=== PATIENT | female | born 1995 | race Hispanic/Latino ===

== ENCOUNTER 2024-03-28 19:54 | Emergency (ER) | payer OTHER, SELFPAY ==
[2024-03-28 19:56] VITALS: BP 123/76
--- NOTE | 2024-03-28 20:56 | ED.SKININJ ---
HPI-Injury
General
Chief Complaint: Musculo-Skeletal Complaint
Source: patient and other (Language Line Manager Nuclear [id number])
Exam Limitations: none
Time Seen by Provider: 03/28/24 20:20
Nursing documentation reviewed up to this point in time: agreed with
History of Present Illness-Injury
Initial Injury comments:
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 Dog is domestic. Pt unsure of her last dT/
Past History
Past History
ED Past Medical History: None
ED Past Surgical History: None
Social History
Tobacco: Non-smoker
Alcohol: None
Personal:
Living: with family
Employment: Employed
Review of Systems
Review of Systems
Allergies reviewed?: Yes
All Other Systems: ROS reviewed and negative except as documented in HPI and ROS
Constitutional: Denies fever
Skin: Reports other (dog bite outer right knee)
Phy Exam
Physical Exam
Physical Exam:
PHYSICAL EXAMINATION:
General: no apparent distress, not acutely ill
Neuro: alert and oriented.
Psychiatric: well kept. interactive and cooperative
Musculoskeletal: Moves with ease. Full range of motion of the right knee with no bony tenderness.
Skin: Warm, pink. The lateral aspect of the right knee has mild local swelling, multiple deep clean abrasions, no punctures, no lacerations, distal neurovascular intact.
Course
Orders/Labs/Results
Orders:
Orders
03/28/24 20:55
Tetanus/Diphth/Acelpertussis [Adacel] 0.5 ml IM .ONCE ONE
Vital Signs
Initial and Last Documented VS:
Initial Vital Signs
Temp Pulse Resp BP Pulse Ox
98.4 F 92 17 123/76 100
03/28/24 19:56 03/28/24 19:56 03/28/24 19:56 03/28/24 19:56 03/28/24 19:56
Last Documented Vital Signs
Temp Pulse Resp BP Pulse Ox
98.4 F 92 17 123/76 100
03/28/24 19:56 03/28/24 19:56 03/28/24 19:56 03/28/24 19:56 03/28/24 19:56
MDM/Problems Addressed
MDM/Problems Addressed:
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 Dog is domestic. Pt unsure of her last dT/
Dog obviously domesticated, no risk for rabies
Pt Tdap updated.
Relatively superficial wound. No systemic antibiotic indicated
Patient ambulating well with normal gait
*Critical Care Note
Total Time (30-74mins, 75-104mins- exclusive of procedures): Not Applicable
ED Attending Note
-
Portions of this chart may have been created with voice recognition software.� Occasional wrong word or��sound alike� substitutions may have occurred due to the inherent limitations of voice recognition software.
Discharge Plan
Departure
Patient Disposition: Home (Routine Discharge)
Date of Disposition: 03/28/24
Time of Disposition: 21:04
Patient with high blood pressure during this ER visit?: No
Condition: Good
Discharge Problem:
Dog bite of right lower leg
Instructions: Using Cold for Pain, Animal Bites ED
Referrals:
Your, Worker's Comp provider [Other] - Keep scheduled appt
Activity Restrictions/Additional Instructions:
As we discussed, wash the area daily and as needed, keep it clean dry and covered until healed.
Seek medical care immediately for signs of infection which may include increasing swelling, redness, pain, pus drainage, fever
Follow-up with your Worker's Comp. provider as they direct you
Cold compress to area 15 minutes off and on several times a day today and tomorrow to help minimize swelling
Interventions
Interventions:
*Risk Screen - Suicide Last Done: 03/28/24 19:56
*General Assessment Last Done: 03/28/24 19:56
*Neglect/Abuse Screening Last Done: 03/28/24 19:56
*ED COVID-19 Vaccine History Last Done: 03/28/24 20:18
*Nursing Disposition Last Done: 03/28/24 21:36
ED-Musculoskeletal Assessment Last Done: 03/28/24 20:18
Discharge Date and Time
Discharge Date/Time: 03/28/24 21:36
Print Language: IRANIAN
[2024-03-28] MEDS: ADACEL 0.5 ML IM (21:24)
== END 2024-03-28 21:36 | disposition home or self-care (01) ==
LOC: EMR 19:54
PROVIDERS: EMERGENCY PHYSICIAN Emergency Medicine
DX: S81.851A Open bite, right lower leg, initial encounter (principal); W54.0XXA Bitten by dog, initial encounter; Z23 Encounter for immunization
CPT/HCPCS: 99282; 90471; 90715

== ENCOUNTER 2024-05-12 21:53 | Emergency (ER) | payer OTHER, SELFPAY ==
[2024-05-12 21:55] VITALS: BP 103/82
[2024-05-12 22:33] LABS: COVID-19 Antigen Negative (Negative)
--- NOTE | 2024-05-13 00:57 | ED.GENMED ---
History of Present Illness
General
Chief Complaint: Cough
Time Seen by Provider: 05/13/24 00:17
History of Present Illness
History of Present Illness:
29-year-old female without significant past medical history presenting for 4 days of cough, congestion, sore throat, body aches. Denies any sick contacts. Notes chills. Denies any chest pain. Does note some mild dyspnea. Denies abdominal pain
or vomiting, has had some nausea. Denies additional acute medical complaints
Patient Turkish-speaking with interpretation by model set artist device.
Past History
Past History
ED Past Medical History: None
ED Past Surgical History: None
Social History
Tobacco: Non-smoker
Alcohol: None
Personal:
Living: with family
Employment: Employed
Phy Exam
Physical Exam
Physical Exam:
General: Well-appearing, no clinical signs of dehydration, nontoxic and in no acute distress
HEENT: protecting airway, normal oropharynx
Neck: appears supple
CV: Normal heart rate, regular rhythm
Resp: No accessory muscle use, no increased work of breathing, lungs clear to auscultation bilaterally
Abd: Soft and non-distended, no tenderness to palpation
Extremities: No deformities, no swelling, no erythema
Neuro: alert, no focal neurologic deficit
: deferred
Rectal: deferred
Psych: Normal affect
Skin: Intact
Course
Orders/Labs/Results
Orders:
Orders
05/12/24 21:57
CR Chest - 2 Views Urgent
Comment:
Reason For Exam: cough
05/12/24 21:59
COVID-19 Antigen Urgent
Source: Nasal Swab
Influenza A+B Rapid Molecular Urgent
BRITTANY Source: Nasal Swab
Specimen Description:
05/12/24 23:05
Influenza A+B Rapid Molecular Urgent
BRITTANY Source: Nasal Swab
Specimen Description:
Date Specimen was Collected: 05/12/24
Time Specimen was Collected: 22:56
Vital Signs
Initial and Last Documented VS:
Initial Vital Signs
Temp Pulse Resp BP Pulse Ox
98.1 F 98 18 103/82 99
05/12/24 21:55 05/12/24 21:55 05/12/24 21:55 05/12/24 21:55 05/12/24 21:55
Last Documented Vital Signs
Temp Pulse Resp BP Pulse Ox
98.1 F 98 18 103/82 99
05/12/24 21:55 05/12/24 21:55 05/12/24 21:55 05/12/24 21:55 05/12/24 21:55
MDM/Problems Addressed
MDM/Problems Addressed:
29-year-old female presenting for cough, congestion, chills. Vital signs normal.
Patient is well-appearing on exam, no acute respiratory distress, unremarkable cardiac and pulmonary exam. Symptoms appear consistent with viral syndrome. Patient had screening laboratory analysis and viral swabs prior to my assessment, positive
for influenza A. Patient out of window for Tamiflu. Chest x-ray obtained, no cardiopulmonary disease. At this time feel stable for discharge with continued outpatient supportive therapy. Discussed oral hydration, Tylenol and Motrin for fever
control, rest. Discussed via model set artist. Turn precautions discussed and patient verbalized understanding
*Critical Care Note
Total Time (30-74mins, 75-104mins- exclusive of procedures): Not Applicable
ED Attending Note
-
Portions of this chart may have been created with voice recognition software.� Occasional wrong word or��sound alike� substitutions may have occurred due to the inherent limitations of voice recognition software.
Discharge Plan
Departure
Referrals:
UNKNOWN - PT DOES,NOT KNOW [Family Provider] -
Interventions
Interventions:
*General Assessment Last Done: 05/12/24 21:55
ED- Fall Risk Assessment Last Done: 05/13/24 00:42
ED- Pulmonary Assessment Last Done: 05/13/24 00:42
Discharge Date and Time
Print Language: [place] ISLAND[place]
== END 2024-05-13 01:27 | disposition home or self-care (01) ==
LOC: EMR 21:53
PROVIDERS: EMERGENCY PHYSICIAN Student in an Organized Health Care Education/Training Program
DX: J10.1 Influenza due to other identified influenza virus with other respiratory manifestations (principal)
CPT/HCPCS: 99284; 71046; 87502; 87811

== ENCOUNTER 2024-08-14 19:03 | Emergency (ER) | payer MEDICAID, SELFPAY ==
[2024-08-14 19:05] VITALS: BP 103/71
[2024-08-14 19:27] LABS: Urine Albumin Negative (Neg - Trace); Urine Bilirubin Negative (Negative); Urine Character Clear (Clear); Urine Color Yellow; Urine Glucose Negative (Negative); Urine Ketone 3+ (Negative); Urine Leukocyte Negative (Negative); Urine Nitrite Negative (Negative); Urine Occult Blood 1+ (Negative); Urine Specific Gravity 1.015 (<1.030); Urine Urobilinogen Negative (Neg - 1+)
[2024-08-14 19:32] LABS: Urine Squamous Cell >30 /LPF (Few)
[2024-08-14 19:33] LABS: Urine Bacteria Moderate (Negative); Urine Mucus Few; Urine White Cell 0-2 /HPF (0-5)
[2024-08-14 19:50] LABS: COVID-19 Antigen Negative (Negative)
[2024-08-14 20:27] VITALS: BMI 24.6
[2024-08-14] MEDS: TYLENOL 1000 MG PO (20:28)
[2024-08-14 20:30] VITALS: BP 102/86
--- NOTE | 2024-08-14 20:46 | ED.GENMED ---
History of Present Illness
General
Chief Complaint: Cold/Flu/URI Symptoms
Source: patient
Time Seen by Provider: 08/14/24 20:23
History of Present Illness
History of Present Illness:
interpreter and translator [id number]�[id number] used for interpretation
29-year-old female with no significant past medical history presenting to the emergency department for evaluation of fever, sore throat, body aches and malaise x 1 day. Patient denies any cough or any other symptoms presently. No known sick
contacts, recent travel or recent antibiotics. Patient took [id number] cetirizine with no relief. No change in oral intake.
Past History
Past History
ED Past Medical History: None
ED Past Surgical History:
Social History
Tobacco: Non-smoker
Alcohol: None
Drug: None
Personal:
Living: with family
Employment: Employed
Review of Systems
Review of Systems
All Other Systems: ROS reviewed and negative except as documented in HPI and ROS
Phy Exam
Physical Exam
Physical Exam:
GENERAL: Alert , in no apparent distress
EYE: conjunctiva clear
NECK: Supple
ENT: o/p clr, mmm. Small exudates on the left tonsil, tonsil lift on the right tonsil, no tonsillar edema or uvular deviation
CARDIAC: Tachycardic rate and rhythm, no murmur
LUNGS: Clear breath sounds bilaterally, no acute respiratory distress, no wheezes/rales/rhonchi
NEUROLOGICAL: Alert and oriented
SKIN: Hot to the touch and dry, skin intact.
MUSCULOSKELETAL: well perfused.
PSYCH: Normal and appropriate interaction.
Scores
Heart Failure Risk
Heart Failure Risk Score: Not Applicable
Heart Score for Chest Pain Patients
STEMI patient?: Not applicable
Withdrawal Assessment of Alcohol
Withdrawal Assessment Completed?: Not applicable
Sepsis
Sepsis Screening
Sepsis Assessment: Sepsis Ruled Out
Sepsis Screen
Sepsis Screen: Sepsis Ruled Out
Date: 08/14/24
Time: 21:53
Course
Orders/Labs/Results
Orders:
Orders
08/14/24 19:14
COVID-19 Antigen Urgent
Source: Nasal Swab
Urinalysis Reflex To Culture Urgent
Date Specimen was Collected: 08/14/24
Time Specimen was Collected: 19:09
Urine Microscopic Reflex Cult Urgent
Influenza A+B Rapid Molecular Urgent
BRITTANY Source: Nasal Swab
Specimen Description:
Date Specimen was Collected: 08/14/24
Time Specimen was Collected: 19:09
Urine Culture Urgent
BRITTANY Source: U
Specimen Description:
Date Specimen was Collected: 08/14/24
Time Specimen was Collected: 19:09
08/14/24 20:23
Acetaminophen [Tylenol] 1,000 mg PO NOW STA
08/14/24 20:33
Rapid Strep Group A Urgent
BRITTANY Source: Throat/Pharynx
Specimen Description:
Date Specimen was Collected: 08/14/24
Time Specimen was Collected: 20:32
Abnormal Lab Results
08/14/24
19:14
Urine Ketones 3+ A
(Negative)
Ur Occult Blood Reflex 1+ A
(Negative)
Urine RBC 3-6 A /HPF
(0-2)
Urine Bacteria (Reflex) Moderate A
(Negative)
Vital Signs
Initial and Last Documented VS:
Initial Vital Signs
Temp Pulse Resp BP Pulse Ox
103.0 F H 124 18 103/71 100
08/14/24 19:05 08/14/24 19:05 08/14/24 19:05 08/14/24 19:05 08/14/24 19:05
Last Documented Vital Signs
Temp Pulse Resp BP Pulse Ox
100.6 F H 124 18 102/86 100
08/14/24 21:40 08/14/24 19:05 08/14/24 19:05 08/14/24 20:30 08/14/24 19:05
MDM/Problems Addressed
Differential Diagnosis Includes:
COVID, flu, strep throat, pneumonia, other viral etiology
MDM/Problems Addressed:
29-year-old female presenting to the emergency department for evaluation of flulike symptoms that began yesterday, continued today. Did not take anything for her fever prior to arrival. Patient has a fever of 103 and is tachycardic. 1 g of
Tylenol ordered for this. COVID and flu testing initiated in triage is negative. Urine does not show any signs of infection. Will check a strep swab. Question viral etiology. Continue supportive care. Anticipate discharge home.
*Pulse Oximetry
Patient hypoxic: no
*Critical Care Note
Total Time (30-74mins, 75-104mins- exclusive of procedures): Not Applicable
Patient Management
Escalation/DeEscalation of care consider admission/obs:
Strep test negative. Patient's fever downtrending. Continue Motrin/Tylenol for fevers. I suspect viral etiology is most likely at this time. Patient aware of return precautions.
ED Attending Note
-
Portions of this chart may have been created with voice recognition software.� Occasional wrong word or��sound alike� substitutions may have occurred due to the inherent limitations of voice recognition software.
Discharge Plan
Departure
Patient Disposition: Home (Routine Discharge)
Date of Disposition: 08/14/24
Time of Disposition: 21:40
Patient with high blood pressure during this ER visit?: No
Discharge Problem:
Fever
Instructions: Viral Syndrome (DC)
Referrals:
Lily Fry MD [Family Provider] -
Stand Alone Forms: Return to Work
Interventions
Interventions:
*Risk Screen - Suicide Last Done: 08/14/24 19:05
*General Assessment Last Done: 08/14/24 19:05
*Neglect/Abuse Screening Last Done: 08/14/24 20:21
*ED- Fall Risk Assessment Last Done: 08/14/24 20:21
*ED COVID-19 Vaccine History Last Done: 08/14/24 19:05
ED- Pulmonary Assessment Last Done: 08/14/24 20:21
Discharge Date and Time
Print Language: MAORI
== END 2024-08-14 22:12 | disposition home or self-care (01) ==
LOC: EMR 19:03
PROVIDERS: Student in an Organized Health Care Education/Training Program; EMERGENCY PHYSICIAN Emergency Medicine; FAMILY PHYSICIAN Internal Medicine Geriatric Medicine
DX: R50.9 Fever, unspecified (principal); Z11.52 Encounter for screening for COVID-19
CPT/HCPCS: 99283; 81003; 81015; 87070; 87086; 87502; 87811; 87880